=== PATIENT | male | born 1970 | race Caucasian/White ===

== ENCOUNTER 2020-03-05 10:06 | Outpatient (REF) | payer OTHER, SELFPAY ==
[2020-03-05 11:44] LABS: Alanine Aminotransferase 36 U/L (0-40); Albumin Level 4.3 g/dL (3.5-5.0); Alkaline Phosphatase 64 U/L (39-117); Anion Gap 10 (12-20); Aspartate Amino Transferase 30 U/L (5-37); Bilirubin Total 0.7 mg/dL (0.0-1.0); Blood Urea Nitrogen 16 mg/dL (9-16); Calcium 8.3 mg/dL (8.4-10.2); Carbon Dioxide 28 mmol/L (22-29); Chloride 105 mmol/L (96-108); Estimated Glomerular Filt Rate > 60; Glucose Fasting 86 mg/dL (60-99); Potassium 3.9 mmol/l (3.3-5.1); Sodium 139 mmol/L (135-145); Total Protein 7.1 g/dL (6.5-8.0)
[2020-03-05 12:06] LABS: Prostate Specific Antigen Scr 1.13 ng/mL (<0.05-4.0); TSH reflex Free T4 1.06 mIU/mL (0.32-4.0)
[2020-03-05 12:13] LABS: Cholesterol 183 mg/dL; HDL Cholesterol 37 mg/dL; LDL Cholesterol Calculated 131 mg/dl; Triglycerides 75 mg/dL
--- NOTE | 2020-03-05 12:14 | XR_ITS ---
EXAMINATION: XR HIP, LEFT CLINICAL INFORMATION: Pain left hip. COMPARISON: None TECHNIQUE: Two views of the left hip. FINDINGS: There is severe loss of superior left hip joint space with mild periarticular spurring. There is mild deformity of left femoral head with subchondral cystic changes and mild sclerosis. No visible acute fracture, dislocation or subluxation seen. The right hip joint, SI joint and rest of the pelvis appears unremarkable. XR/XR hip LT w PEL1V IMPRESSION: Severe advanced degenerative arthritic changes left hip joint with periarticular spurring. No acute fracture or dislocation. AP pelvis and the right hip joint appears unremarkable.
== END 2020-03-05 10:07 | disposition home or self-care (01) ==
LOC: HO.LAB 10:06
PROVIDERS: PCP Physician Assistant; Visit Provider Physician Assistant
DX: M25.552 Pain in left hip (principal); G89.29 Other chronic pain; Z13.29 Encounter for screening for other suspected endocrine disorder; Z13.1 Encounter for screening for diabetes mellitus; Z12.5 Encounter for screening for malignant neoplasm of prostate; Z13.220 Encounter for screening for lipoid disorders
CPT/HCPCS: 73502; 80053; 80061; 84153; 84443

== ENCOUNTER 2020-04-08 19:28 | Outpatient (REF) | payer OTHER, SELFPAY ==
--- NOTE | 2020-04-08 19:36 | MR_ITS ---
EXAMINATION: MR HIP WITHOUT CONTRAST, LEFT CLINICAL INFORMATION: Other sprain of left hip, initial encounter. Patient reports hip pain for several years, physical therapy with no progress, and no recent injury. COMPARISON: XR left hip and pelvis 03/05/2020 TECHNIQUE: MRI of the left hip was obtained using routine sequences on a high-field magnet. FINDINGS: ACETABULAR LABRUM: The anterosuperior labrum is not visualized and appears to be completely replaced by a marginal osteophyte. The lateral labrum is degenerated with attenuation and irregularity. The posterior labrum is grossly intact. ARTICULAR CARTILAGE/BONE: There are prominent marginal osteophytes. There is severe narrowing of the superior weightbearing portion of the left hip joint with severe cartilage loss. There is mild patchy subchondral bone marrow edema. There are 2 small subchondral degenerative cysts in the superomedial femoral head. There is mild lateral subluxation of the left femoral head. MUSCLES/TENDONS: Intact. JOINT FLUID/BURSA: There is a small left hip joint effusion with mild debris or synovitis. INTRAPELVIC STRUCTURES: Unremarkable. MR/MR hip LT wo con IMPRESSION: 1. Severe osteoarthritis of the left hip joint. 2. Small left hip joint effusion with mild debris or synovitis.
== END 2020-04-08 19:29 | disposition home or self-care (01) ==
LOC: HO.MRI 19:28
PROVIDERS: Visit Provider Physician Assistant
DX: S73.192A Other sprain of left hip, initial encounter (principal)
CPT/HCPCS: 73721

== ENCOUNTER → 2021-06-03 12:09 | Outpatient (BNVA) | payer OTHER, SELFPAY | PROVIDERS: PCP Physician Assistant; Visit Provider Nurse Practitioner Family ==

== ENCOUNTER 2024-05-23 13:58 | Outpatient (AMB) | payer OTHER, SELFPAY ==
[2024-05-23 14:03] VITALS: BP 120/62; PULSE 76; TEMP 36.2; O2SAT 97; BMI 23.6
--- NOTE | 2024-05-23 14:03 | A.OFFPC_ITS ---
Vital Signs 05/23/24 14:03 Height 5 ft 11 in Weight 169 lb 4 oz BMI 23.6 BP 120/62 Blood Pressure Location Lt brachial Position Sitting Pulse 76 Pulse Source Pulse Oximeter Temp 97.1 F Temp Source Temporal Artery Scan Pulse Oximetry (%) 97 Intake Visit Reasons: degenerative change on foot Intake Note: Patient is here today for a physical. 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 Accompanied by: Self / Same As Patient Allergies penicillin G Allergy (Unknown, Verified 05/23/24 14:16) unknown procaine [From Novocain] Allergy (Unknown, Verified 05/23/24 14:16) edema Medication List - Last Reconciled 05/23/24 by Nicholas Croft PA-C bisacodyl (Dulcolax (bisacodyl)) 10 mg (2 x 5 mg) PO ONCE 1 day cetirizine (Zyrtec) 10 mg PO DAILY PRN polyethylene glycol 3350 (Miralax) 238 grams PO ONCE Tobacco use date assessed: 05/23/24 Dental Screening Dental Screen Date: 05/23/24 Did you have a dental visit in the last 12 months?: Yes Did you have a dental problem in the last 6 months where you did not have access to dental care?: No Was dental information given to patient?: Patient has dentist HPI degenerative change on foot HPI Details Patient is a 53-year-old male here today for a routine annual physical. Patient has a past medical history significant for hip osteoarthritis and borderline high cholesterol. Concerns--> Colorectal cancer screening: Vaccines: Up-to-date with COVID vaccine, tetanus vaccine, considering flu vaccine PFSH Medical History Osteoarthritis of left shoulder Osteoarthritis of both hips Surgical History Hx of detached retina repair History of total hip replacement History of surgery Family History Father Diabetes Renal cancer Mother No problems noted. Sister HIV (human immunodeficiency virus infection) Maternal Grandmother Alzheimers disease Mental health disorder Social History (Updated 05/23/24 @ 14:15 by Nicholas Croft PA-C) Housing: Condominium Alcohol intake: current Alcohol intake frequency: 0-2 drinks per day Patient Tobacco Use Status: Never used Tobacco e-Cigarette/Vaping Use: Never Used service: No Current occupational status: employed Current occupation: [employer] Cognitive needs: No Hearing needs: No Vision needs: No Questionnaire Thrive Questionnaire Date Thrive assessed: 03/10/22 AUDIT C Alcohol Use Questionnaire (AUDIT-C) 2. How many drinks containing alcohol do you have on a typical day when you are drinking?: 1 or 2 3. How often do you have six or more drinks on one occasion?: Never Total Score: 0 DEREK-7 AMB Questionnaire DEREK-7 Date DEREK - 7 assessed: 03/10/22 Source: Developed by Drs. Isaiah James, Carly Lui, Rafita Linton and colleagues, with an educational cindy from [employer]. Physical exam (Primary Care) Vital Signs: Last Vital Signs Temp 97.1 F 05/23/24 14:03 Pulse 76 05/23/24 14:03 BP 120/62 05/23/24 14:03 Pulse Ox 97 05/23/24 14:03 BMI result Body Mass Index 23.6 Tobacco/Smoking Status: Tobacco use Status Tobacco use date assessed 05/23/24 05/23/24 14:08 Patient Tobacco Use Status Never used Tobacco 05/23/24 14:15 e-Cigarette/Vaping Use Never Used 05/23/24 14:15 Thrive Assessment: Date of Thrive Assessment Date Thrive assessed 03/10/22 05/23/24 14:04 Office Procedures Flu Questionnaire Does the patient have a severe egg allergy?: No Does the patient have severe life threatening allergies?: No Does the patient have a fever or illness today?: No Has the patient ever had Guillain-[place] Syndrome?: No Has the patient ever had any past reaction to a flu shot?: No Immunizations Fluarix Triv 0315-3364 (PF) 45 mcg (15 mcg x 3)/0.5 mL IM syringe Performing Provider: Nicholas Croft PA-C [facility] Administered by: KIRSTIE Wu on 05/23/24 14:50 Dose Route Admin Location Dispensed Lot Number Expiration Date [facility] 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 Eligible 05/23/24 Private Coding Diagnoses Borderline high cholesterol E78.9 Left foot pain M79.672 Right foot pain M79.671 Skin lesion of back L98.9 Assessment & Plan Assessment & Plan (1) Borderline high cholesterol: Code(s): E78.9 - Disorder of lipoprotein metabolism, unspecified Category: Medical (2) Left foot pain: Code(s): M79.672 - Pain in left foot Category: Medical (3) Right foot pain: Code(s): M79.671 - Pain in right foot Category: Medical (4) Skin lesion of back: Code(s): L98.9 - Disorder of the skin and subcutaneous tissue, unspecified Category: Medical Orders: Orders Comprehensive [place]. Panel Fast Today Z13.1 - Encounter for screening for diabetes mellitus Complete Blood Count no Diff Today Z13.1 - Encounter for screening for diabetes mellitus Prostate Specific Antigen Scr Today Z12.5 - Encounter for screening for malignant neoplasm of prostate, Z13.1 - Encounter for screening for diabetes mellitus Lipid Panel Today E78.9 - Disorder of lipoprotein metabolism, unspecified XR foot RT 2V Today M79.671 - Pain in right foot XR foot LT 2V Today M79.672 - Pain in left foot
--- OUTSIDE RECORDS SUMMARY | 2024-05-23 18:27 | XMS_ITS | Data Portability ---
Author Organization [facility], OFFICE Address [address], [facility] [address] [place] [address] Assessment Encounter Date Assessment Date Assessment LastModified by Organization Details LastModified Time 07/01/2020 07/01/2020 We discussed the options related to his treatment. ??He has advanced OA with complete loss of the cartilage space interval, cam impingement and osteophyte formation. His best choices are continued nonoprx vs left total hip arthroplasty. We discussed the issues related to total hip arthroplasty in a lot of detail today including the preoperative process, the operative techniques, less invasive techniques, computer-assisted techniques, the types of implants, the types of bearings, and the perioperative risks. In addition, we discussed the typical hospitalization course following surgery and reasonable expectations for recovery, outcome, activity level, and long-term followup. He is interested in proceeding and we will begin to make arrangements.?? This visit was conducted as a real-time telehealth interactive video visit during this the national emergency and ongoing COVID-19 pandemic. He was identified and consented to this telehealth visit. He was at his home and I was at my home office. I spent a total of 35 minutes during this encounter. Greater than 50% of the time was devoted to counseling and coordinating care. This included reviewing records and pertinent studies, discussing diagnostic evaluation and workup, planning therapeutic interventions, and formulating the future disposition of care. sbm Not available 07/01/2020 15:15:45 11/02/2020 11/02/2020 Rob is progressing well following elective LTHR. He was able to return to work without support at 5 days. He's going to continue to resume all reasonable activities as tolerated. This visit was conducted as a real-time telehealth interactive video visit during this the national emergency and ongoing COVID-19 pandemic. He was identified and consented to this telehealth visit. I spent a total of 15 minutes during this encounter. Greater than 50% of the time was devoted to counseling and coordinating care. This included reviewing records and pertinent studies, discussing diagnostic evaluation and workup, planning therapeutic interventions, and formulating the future disposition of care. sbm Not available 11/02/2020 13:16:24 Plan of Treatment Reminders Order Date Submit Date Provider Last Modified By Organization Details Last Modified Time Details Appointments None record ed. Lab None record ed. Referral None record ed. Procedures None record ed. Surgeries None record ed. Imaging None record ed. Medication Orders None record ed. Patient TargetsNo targets recorded. Patient InstructionsNo instructions recorded. Reason for Referral None Reported. Procedures Surgical History Date Name Laterality Status Provider Name and Address Organization Details Recorded Time total replacement of left hip joint completed Keerthi Goncalves [place] - [facility] 10/29/2020 11:32:05 repair of retina for retinal detachment completed Patrick Barclay MD [address] [facility] [place],[facility] [address], [place], [address], [place] - [facility]Ass[facility]d and [facility] 07/01/2020 15:11:13 repair of umbilical hernia completed Patrick Barclay MD [address], [place], [address], [place] - Comp-Assistd and [facility] 07/01/2020 15:11:30 Imaging Results None recorded. Procedure Notes None recorded. Medical Equipment None Reported. Allergies Allergen ID Allergen Name Allergen Category Reaction Reaction Severity Criticality Documentation Date Start Date Code Code System Note Provider Name and Address Organization Details Recorded Time 03034 Medicinal product containin g penicilli n and acting as antibacte rial agent (product) medicatio n Not available Not available Not available 07/01/2020 41281 05 SNOMED [facility] 11:21:41 98641 procaine hydrochlo ride medicatio n Not available Not available Not available 07/01/2020 31483 8 RxNorm Keerthi Goncalves null, [place] - [facility]Ass[facility]d [facility] 11:21:55 Medications Name Sig Start Date Stop Date Status Note LastModified by Organization Details LastModified Time celecoxib 200 mg capsule PRE OP: TAKE 2 TABLETS THE NIGHT BEFORE SURGERY AND TAKE 1 TABLET THE MORNING OF SURGERY. POST OP: TAKE 1 TABLET DAILY active Not Available Not Available No t Available erythromycin 500 mg tablet TAKE 2 TABLETS BY MOUTH 1 HOUR PRIOR TO DENTAL WORK active Not Available Not Available No t Available ofloxacin 0.3 % eye drops INSTILL 1 DROP INTO RIGHT EYE 4 TIMES A DAY AFTER SURGERY active Not Available Not Available No t Available ondansetron HCl 4 mg tablet Take 2 tablet(s) 2 TIMES A DAY by oral route. PRN for Nausea active Not Available Not Available No t Available prednisolone acetate 1 % eye drops,suspensi on INSTILL 1 DROP INTO RIGHT EYE 4 TIMES A DAY AFTER SURGERY active Not Available Not Available No t Available atropine 1 % eye drops INSTILL 1 DROP INTO RIGHT EYE TWICE A DAY AFTER SURGERY active Not Available Not Available No t Available oxycodone 5 mg tablet Take 1-2 tablet(s) EVERY 4-6 HOURS by oral route. active Not Available Not Available No t Available Eliquis 2.5 mg tablet TAKE 1 TABLET(S) 2 TIMES A DAY BY ORAL ROUTE FOR 30 DAYS AFTER SURGERY active Not Available Not Available No t Available Vitals Date Recorded Body height Body mass index (BMI) Body weight Provider Name and Address Organization Details Last Updated DateTime 07/01/2020 180.34 cm 23.6 kg/m2 29062.11 g Keerthi Goncalves [place] - Comp[facility]Ass[facility]d [facility] 07/01/2020 11:21:22 Social History Question Answer Notes LastModified by Organizat ion Details LastModified Time Tobacco Smoking Status Never Smoker Keerthi holguin, [place] - [facility] 07/01/2020 11:22:35 What Was The Date Of Your Most Recent Tobacco Screening? 07/01/2020 [email or web address] Information not available 07/01/2020 Do You Or Have You Ever Used Any Other Forms Of Tobacco Or Nicotine? No [email or web address] Information not available 07/01/2020 Sex: Unknown Functional Status None recorded. Mental Status None recorded. Family History Relationship Description Onset Age of this Age Resolved Age Notes LastModified by Organization Details LastModified Time Father Diabetes mellitus sbm Not available 2020 15:12:00 Father Coronary arterioscler osis sbm Not available 2020 15:12:18 Father Arthritis thr sbm Not available 07/01/2020 15:12:37 Mother Diabetes mellitus sbm Not available 2020 15:12:47 Medical History No medical history recorded. Past Encounters Encounter ID Performer Location Encounter Start Date Encounter Closed Date Diagnosis/Indication Diagnosis SNOMED-CT Code Diagnosis ICD10 Code Diagnosis Note [id number] Patrick Barclay MD [facility] [address] [place] [address] 07/01/2020 11:20:20 07/01/2020 16:23:20 [id number] [facility] [address] [place] [address] 11/02/2020 07:25:28 11/02/2020 13:55:57 Health Concerns Section Related Observation LastModified by Organization Detai ls LastModified Time None Recorded Concern Status LastModified by Organization Details LastModified Time None Recorded Advance Directives Directive None Recorded Payers Encounter Date Sequence Insurance Name Policy Number Policy Dominguez Covered Member ID Dominguez Member ID Guarantor Name 07/01/2020 1 [facility] [id number] Carlos Ortiz [id number] Carlos Ortiz 11/02/2020 1 [facility] Carlos Ortiz [id number] Carlos Ortiz Notes Date Note Type Note Provider Name and Address Organization Details Recorded Time 07/01/2020 text/html Hip(s) AthenaReported bypatient.Location:l eft; groin; buttocks Severity:moderate Alleviating Factors:rest; stretching Aggravating Factors:weightbearin g; exercise Associated Symptoms:no weakness; no numbness; no tingling; no swelling; no redness; no warmth; no ecchymosis; no catching/locking; no popping/clicking; no buckling; no grinding; no instability; no radiation down leg; no drainage; no fever; no chills; no weight loss; no change in bowel/bladder habits Prior Imaging:x ray; MRI Previous PT:extremely active as a baseline. worsens with activity. Patrick Barclay MD [address], [place], [address], [place] - [facility] 07/01/2020 15:15:50 11/02/2020 text/html Hip(s) AthenaReported bypatient.Location:l eft Severity:no pain Aggravating Factors:cannot identify Associated Symptoms:no weakness; no numbness; no tingling; no swelling; no redness; no warmth; no ecchymosis; no catching/locking; no popping/clicking; no buckling; no grinding; no instability; no radiation down leg; no drainage; no fever; no chills; no weight loss; no change in bowel/bladder habits Prior Imaging:x ray; CT scan Previous PT:helped significantly Patrick Barclay MD [address], [place], [address], [place] - Comp-Assistd and R[facility] 11/02/2020 13:16:30
--- OUTSIDE RECORDS SUMMARY | 2024-05-23 18:27 | XMS_ITS | Data Portability ---
Author Organization [facility] Office Address [address], [address] [place] [address] Care Team Providers Care Structural Shop Helper Name Role Phone JOHN ELLIOTT Primary Care Provider Assessment Encounter Date Assessment Date Assessment LastModified by Organization Details LastModified Time 12/08/2020 12/08/2020 Diagnostic Imaging: Grashey, axillary, and humerus views of bilateral shoulders (3 views x bilateral shoulders (2 shoulders) = 6 TOTAL views of the shoulder) demonstrates moderate/severe bilateral glenohumeral DJD, with joint space narrowing, and large inferior osteophyte, LEFT worse than RIGHT. It appears to be a B2 glenoid bilaterally. Evidence of calcific tendinitis in the LEFT supraspinatus. Assessment/Plan: 50-year-old male presents with moderate/severe bilateral glenohumeral DJD, with LEFT more symptomatic than RIGHT at this time. We had a long discussion regarding pertinent anatomy, imaging results, natural progression of the condition, and both non-surgical and surgical options. At this point, Carlos has significant pain, decreased range of motion, function limitations, notes his affecting his quality of life. We discussed anatomic shoulder replacement in detail, as well as possibly reverse shoulder replacement if he would have significant amounts of glenoid cyst, or rotator cuff issues. Ultimately, given his age, I hope that would be able to perform an anatomic replacement in him. We will get an MRI of his LEFT shoulder for further evaluation, and have it available for his visit with Dr. Buck. I will send a message on the portal once we get his results just to discuss the quality of his rotator cuff. We discussed risks, benefits, and perioperative outcomes and expectations of shoulder replacement. We discussed holding off as long as possible for his shoulder replacement, but I also realized that if we wait too long, we may lose the ability to perform an anatomic, and he may end up with a reverse shoulder replacement a bit earlier than expected. We also discussed longevity of implants, also lysis, stress shielding, [employer]HM[employer] polyethylene with vitamin E for both anatomic and reverse, as well as potential revisions down the road. We will set him up with a tentative surgical date for a LEFT total shoulder arthroplasty, as well as a presurgical appointment with Dr. uBck. He was given a copy of the presurgical booklet, and is viewed the presurgical video. All questions were answered, and he is comfortable with this plan. A total of 63 minutes was spent on the day of the visit, which included the patient viewing an educational video discussing risks and benefits of shoulder replacement, time spent preparing to see the patient, obtaining a pertinent H&P, review and discussion of imaging with the patient, discussion of patient anatomy, discussion of both non-surgical and surgical treatment options, answering patient questions, and documentation of the visit in EHR. This visit is a odle-ss-vulc visit during the COVID-19 pandemic. Based on my clinical judgment, I felt that this visit could not be provided safely and appropriately via TeleHealth. Based on available information prior to presentation, the patient had a high risk of significant worsening and potential functional impairment affecting ADLs if the visit was not completed today. The patient was seen in the office after following PPE use, Workforce Safety, Patient Safety and Infection Control protocols for all services provided today in accordance with [facility] and CDC Guidelines. There was additional practice expense incurred due to the Public Health Emergency. This additional expense includes but is not limited to: - Additional clinical staff and medical technical services specialist time for pre-screening - Time spent reviewing COVID social distancing guidelines, precautions, instructions, and signage - Patient symptom checking upon arrival - Application, removal, and purchasing of additional PPE - Additional cleaning of exam room, equipment, supplies, as well as cleaning supplies for that purpose. This note was dictated with Benjamin. Please excuse any errors in spelling/transcri ption, which may have changed the context of the sentence. [email or web address] Not available 05/31/2021 11:52:12 01/19/2021 01/19/2021 DATA: X-rays of the right show significant arthritis. On the left, he has arthritis with a large goat arango. The head sits extremely posterior in the joint with some wear of the posterior glenoid as well. Rotator cuff is intact. IMPRESSION: DJD left and right. Left is worse. Right I don? t have an MRI on yet, so it? s hard to talk about glenoid wear. PLAN: On the left, we have a very prolonged discussion as he has done extensive research into this problem, especially the options for someone so young. The question is could he have a CAM procedure, which Dr. Rian Martinez is the expert in versus a shoulder replacement. I went over everything really carefully. Given the fact he has already got some wear in the posterior glenoid and sits so far posterior in the joint, I don? t think he would be a good candidate for the CAM procedure, and in fact given the fact that this is his non-dominant arm, he is not going to overuse it, I would lean him more toward getting a shoulder replacement on that side sooner than later. He does have Dr. Rian Martinez? s information, and he could obviously send everything out to him as well. We did talk at length about different options regarding the right shoulder as well. My suggestion would be to get an MRI of the right shoulder, as that will give us some cross sectional imaging to determine the extent of glenoid wear, position of the head and then he would send that out to Dr. Rian Martinez to see if would be possible be a candidate for the CAM procedure on the right, but on the left I would lean more towards shoulder replacement, and he is seeing Dr. Geovanni Buck this Monday for that. If I can be of any further assistance, I would be glad to do so. This was a 25-minute encounter. Billing Code: [id number]. [email or web address] Not available 01/22/2021 00:47:29 01/22/2021 01/22/2021 Data:X-Ray AP/Grashey left shoulder- 1: Severe glenohumeral osteoarthritis. Complete loss of glenohumeral joint spacing. Very large inferior osteophyte. Impression/Plan: 50 year old male here for LEFT shoulder pain. Had a lengthy conversation today with the patient regarding his shoulder. Patient has watched the pre-visit video. Explained to patient in detail the anatomy of a shoulder. Reviewed X-Rays. Reviewed all possible treatment options which include: nothing until pain is unbearable, injections or surgery. Discussed the possible surgical options would be a total shoulder replacement or a reverse shoulder replacement. Discussed optimal treatment outcomes, with realistic healing, pain and range of motion levels post-surgically. Discussed possibility of 1% of cases failing early, within 10 years. Reviewed the seven surgical risks; infection, medical risk factors, dislocation/poppi ng out of socket, implant failure, nerve injury, stress fracture, and the possibility of still having pain. I am mostly concerned about his risk for and we discussed these risks in more detail. Reviewed operative and post op healing process. Discussed that patient is allowed to do small movements in front of body and driving usually is allowed within 2-6 weeks, once they are off pain medication and has practiced with family/friends. Patient received a pre-op binder. Will order a CT to evaluate glenoid bone stock pre-surgically. While Rob has advanced arthritic changes in his left shoulder given his radiographs, he is extremely young. While he has some glenoid bone stock remaining at this time, explained that erosion will continue to the point where future surgery may be complicated. However, there are benefits to holding off on surgery for the time being. He is extremely young and, should he sustain a intra- or postoperative complication, he will be worse off than he is now. Additionally, technology and prosthetic design is improving at a drastic rate - it is possible future designs will better address glenoid erosion in younger patients. Indications for reverse replacements continue to expand. Given Rob's glenoid erosion pattern, a reverse replacement may serve him better than an augmented, anatomic replacement in the long run. However, a reverse replacement is still aggressive at this time given his age. There is clear benefit to Rob holding off on surgery for the time being until he is a better candidate for a reverse, as revising an anatomic prosthesis to a reverse prosthesis is more prone to complications and limited clinical outcome. He should f/u annualy to monitor the progression of his glenoid erosion. Rob is in agreement with this plan and will continue to use his shoulder for whatever actions he tolerates. We will cancel his upcoming surgical date. Given the patient's pain, dysfunction, and advanced degenerative changes, advised against enrollment in a formal physical therapy program, as this will likely exacerbate their shoulder pain. ? I spent a total of 47 minutes on the day of the visit, which includes time spent preparing to see the patient by reviewing records/test results including patient radiographs, obtaining patient history, performing a medically necessary examination, counseling/educat ing the patient on surgical risks, rehabilitation timelines, and continued shoulder care, communicating with other health professionals including Allan Amin's clinical notes, coordinating patient care, and documenting information in the EHR? The patient completed the COVID-19 screening handout and was deemed healthy to move forward with this appointment. This visit is a pidc-ze-fsjp visit during the COVID-19 pandemic. Based on my clinical judgment, I felt that this visit could not be provided safely and appropriately via TeleHealth. Based on available information prior to presentation, the patient had a high risk of significant worsening and potential functional impairment affecting ADLs if the visit was not completed today. The patient was seen in the office after following PPE use, Workforce Safety, Patient Safety and Infection Control protocols for all services provided today in accordance with [facility] and CDC Guidelines. There was additional practice expense incurred due to the Public Health Emergency. This additional expense includes but is not limited to: * Additional clinical staff and medical technical services specialist time for pre-screening * Time spent reviewing COVID social distancing guidelines, precautions, instructions, and signage * Patient symptom checking upon arrival * Application, removal, and purchasing of additional PPE * Additional cleaning of exam room, equipment, supplies, as well as cleaning supplies for that purpose. Not available 01/22/2021 12:09:03 2023 2023 ASSESSMENT: - Advanced arthritis in the shoulder - Large bone spur in the shoulder - Decreased range of motion in the shoulder - Pain in the shoulder PLAN: The patient is considering a reverse arthroplasty due to his advanced arthritis. The patient is advised to continue moving and working out as it is beneficial for his condition. The patient is also advised to focus on pulling exercises rather than pushing exercises to keep the load off his shoulder. The patient is advised to return for a follow-up in a year, or sooner if his condition worsens. The patient is also advised to get a CAT scan and an MRI to assess the erosion in his shoulder and the condition of his rotator cuff. [email or web address] Not available 2023 11:48:43 Plan of Treatment Reminders Order Date Submit Date Provider Last Modified By Organization Details Last Modified Time Details Appointments None recorded. Lab None recorded. Referral None recorded. Procedures None recorded. Surgeries None recorded. Imaging MRI, shoulder, w/o contrast - PLEASE INCLUDE T2 SAGITAL and give patient a disk to hand carry to office Right Shoulder Impingemen t, r/o Rotator Cuff Tear!! determine the extent of glenoid wear, position of the head Can you get this scheduled PRABHAKAR.. Patient will be in your area on this Monday. 2020 021 [facility], [address] [place] [address], [facility] [address], [place], [address], 08:54:28 Medication Orders None recorded. Patient TargetsNo targets recorded. Patient InstructionsNo instructions recorded. Reason for Referral None Reported. Results Created Date Observation Date Name Description Value Unit Range Abnormal Flag Note LastModifiedBy Organization Detail LastModifiedTime 12/09/1912/08/2020 jak SAPP http:/ [email or web address] lweb/I ntegra tionPr ocesso r.aspx ?CMD=O PENSTU DY&ACC ESSION =[id number] Shoulder [address], [address], 12/08/2020 09:26:54 12/09/19 21 12/08/2020 ankit SAPP http:/ /[email or web address]/opa lweb/I ntegra tionPr ocesso r.aspx ?CMD=O PENSTU DY&ACC ESSION =[id number] Shoulder [address], [address], 12/08/2020 09:26:54 01/09/20 21 01/07/2021 jak FISHER, w/o contr ast [facility] Access ion Number : [id number] Jeanna pineda Name: Rob Huitrona l Record Number : [id number] Date of : 1970 Date of Exam: 2020 Referr ing Physic davidson: Allan Amin [facility] [address], [address] [place] [address] Exam: MR Should er (C-) CPT 48495 - Left Room Descri ption: [facility] 3.0T Clinic al Histor y: Primar y osteoa rthrit is of the left should er. The patien t report s modera te to severe left should er pain occurr ing daily for 4 months with limite d range of motion . Techni que: MRI of the left should er was perfor med withou t intrav enous contra st. Compar matthias: None. Findin gs: Rotato r cuff: There is globul ar foci of T1 and T2 hypoin tense signal in the supras pinatu s and infras pinatu s footpr int, compat ible with calcif ic tendin opathy . There are small foci of T2 hyperi ntense signal adjace nt to both of these foci, which may reflec t adjace nt edema versus small intras ubstan ce partia l tears. There is mild tendin opathy of subsca pulari s. The teres minor tendon is intact . Rotato r cuff muscle bulk appear s mainta ined. Glenoi d labrum and biceps tendon : There is diffus e degene rative tearin g of the labrum . The biceps tendon is in the groove and there is mild thicke ana cristina and increa sed signal of the intra- articu lar portio n. AC joint: There is mild acromi oclavi cular degene rative change with mild bony prolif eratio n and mild marrow edema. Articu lar cartil age and bone: There is severe glenoh umeral degene rative change with full-t hickne ss chondr al loss throug hout the glenoh umeral joint and a large osteop hyte inferi yonny of the adriano l head neck juncti on. Mild marrow edema is seen throug hout most of the adriano l head with mild marrow edema anteri yonny in the glenoi d. There is bony remode ling of the glenoi d with slight certified nurse operating room ior inclin ation inferi yonny. There is bony prolif eratio n certified nurse operating room iorly of the glenoi d. A loose body in the subsca pulari s recess measur es up to 1.2 cm. There is hetero geneou s signal in the joint fluid in the glenoh umeral joint, which may reflec t additi onal small loose bodies or synovi tis. Impres darlene: 1. Severe glenoh umeral degene rative change with loose body in the subsca pulari s recess as well as additi onal loose bodies versus synovi tis. 2. Calcif ic tendin opathy of supras pinatu s and infras pinatu s with small foci of T2 hyperi ntense signal adjace nt to these foci, which may reflec t adjace nt edema versus small intras ubstan ce partia l tears. 3. Mild tendin opathy of the intra- articu lar biceps . 4. Mild acromi oclavi cular degene rative change . Electr onical ly Signed By: Nay Ferguson ra, MD [facility] ([facility] [address] [place], [address], 01/10/2021 10:37:02 03/03/20 21 03/02/2021 MRI, jak scottie, w/o contr ast No observ ation record ed. comari [facility] [address] [address], [place], [address], 06/01/2021 15:30:01 08/25/19 24 XR, humer us, 2 or more view No observ ation record ed. [address], [address] 2023 15:45:55 08/25/19 24 img:x r shoul ders bilat min 2V No observ ation record ed. [address], [address] 2023 15:45:55 08/25/19 24 img:x r humer us left 2 views minim um No observ ation record ed. [address], [address] 2023 15:45:56 08/25/19 24 2023 xr humer us right 2 views minim um Fin al Report EXAM#: [id number] PROCED URE: DXR 0094 XR HUMERU S RIGHT 2 VIEWS MINIMU M 2023 12:25P M CLINIC AL INDICA TION: PAIN IN L/R SHOULD ER Clinic al indica tions: Pain in left should er. 2 views of each should er and single views of each humeru s are obtain ed. No compar matthias should er radiog raphs. At the left should er, there is severe glenoh umeral osteoa rthrit is with bone-o n-bone and a very large osteop hyte arisin g from the inferi or adriano l head. On the right, there is severe glenoh umeral osteoa rthrit is with bone-o n-bone as well as large adriano l osteop hyte inferi yonny. Examin ation of the left humeru s shows no additi onal abnorm ality. Examin ation of the right humeru s shows no additi onal abnorm ality. NUMBER OF IMAGES : 1 Report ed by : WOODY FLOWERS M.D. On: 2023 12:48P Signed by: WOODY FLOWERS M.D. On: 2023 12:48P [email or web address] [facility] [address] [place], [address], 2023 15:45:54 08/25/19 24 2023 xr humer us left 2 views minim um Fin al Report EXAM#: [id number] PROCED URE: DXR 0093 XR HUMERU S LEFT 2 VIEWS MINIMU M 2023 12:25P M CLINIC AL INDICA TION: PAIN IN LEFT SHOULD ER Clinic al indica tions: Pain in left should er. 2 views of each should er and single views of each humeru s are obtain ed. No compar matthias should er radiog raphs. At the left should er, there is severe glenoh umeral osteoa rthrit is with bone-o n-bone and a very large osteop hyte arisin g from the inferi or adriano l head. On the right, there is severe glenoh umeral osteoa rthrit is with bone-o n-bone as well as large adriano l osteop hyte inferi yonny. Examin ation of the left humeru s shows no additi onal abnorm ality. Examin ation of the right humeru s shows no additi onal abnorm ality. NUMBER OF IMAGES : 1 Report ed by : WOODY FLOWERS M.D. On: 2023 12:48P Signed by: WOODY FLOWERS M.D. On: 2023 12:48P [email or web address] [facility] [address] [place], [address], 2023 15:45:54 08/25/19 24 2023 xr shoul ders bilat min 2V Fin al Report EXAM#: [id number] PROCED URE: DXR 0147 XR SHOULD ERS BILAT MIN 2V 2023 12:25P M CLINIC AL INDICA TION: PAIN IN L/R SHOULD ER Clinic al indica tions: Pain in left should er. 2 views of each should er and single views of each humeru s are obtain ed. No compar matthias should er radiog raphs. At the left should er, there is severe glenoh umeral osteoa rthrit is with bone-o n-bone and a very large osteop hyte arisin g from the inferi or adriano l head. On the right, there is severe glenoh umeral osteoa rthrit is with bone-o n-bone as well as large adriano l osteop hyte inferi yonny. Examin ation of the left humeru s shows no additi onal abnorm ality. Examin ation of the right humeru s shows no additi onal abnorm ality. NUMBER OF IMAGES : 4 Report ed by : WOODY FLOWERS M.D. On: 2023 12:48P Signed by: WOODY FLOWERS M.D. On: 2023 12:48P [email or web address] [facility] [address] [place], [address], 2023 15:45:55 Result Notes None recorded. Problems Name Problem SNOMED Code Status Onset Date Resolution Date Notes Provider Name and Address Organization Details Recorded Time Localized, primary osteoarthritis of the shoulder region 845337417 Active 2020 SUSANA CAMPOS [address] [place] [address], [id number], [facility] 10:18:28 Problem Notes None recorded. Procedures Surgical History Date Name Laterality Status Provider Name and Address Organization Details Recorded Time 10/07/19 21 Orthopaedic Surgery completed Mirtha Garcia [facility] 12/08/2020 09:06:59 09/06/19 20 Orthopaedic Surgery completed Mirtha Garcia [facility] 12/08/2020 09:07:15 Other completed [facility] 01/19/2021 15:08:36 Imaging Results Imaging Date Name Status LastModified by Og saldana Details LastModified Time 12/08/2020 XR, shoulder completed [address] [facility] [address], [address], 12/08/2020 09:26:54 12/08/2020 XR, humerus completed [address] [facility] [address], [address], 12/08/2020 09:26:54 01/07/2021 MRI, shoulder, w/o contrast completed [facility] [address] [place], [address], 01/10/2021 10:37:02 03/02/2021 MRI, shoulder, w/o contrast completed [facility] [address], [address], 06/01/2021 15:30:01 2023 XR, humerus, 2 or more view completed [facility] [address], [address] 2023 15:45:55 2023 img:xr shoulders bilat min 2V completed [facility] [address] [place], [address] 2023 15:45:55 2023 img:xr humerus left 2 views minimum completed [address], [place], [address] 2023 15:45:56 2023 xr humerus right 2 views minimum completed [address] [facility] [address] [place], [address], 2023 15:45:54 2023 xr humerus left 2 views minimum completed [address] [facility] [address] [place], [address], 2023 15:45:54 2023 xr shoulders bilat min 2V completed [address] [facility] [address] [place], [address], 2023 15:45:55 Procedure Notes None recorded. Medical Equipment None Reported. Allergies Allergen ID Allergen Name Allergen Category Reaction Reaction Severity Criticality Documentation Date Start Date Code Code System Note Provider Name and Address Organization Details Recorded Time 504207 Medicinal product containin g penicilli n and acting as antibacte rial agent (product) medicatio n Not available Not available Not available 12/08/2020 94465 05 SNOMED Mirtha [facility] 09:04:40 Medications Name Sig Start Date Stop Date Status Note LastModified by Organization Details LastModified Time celecoxib 200 mg capsule PLEASE SEE ATTACHED FOR DETAILED DIRECTION S 12/08 completed Not Available Not Available Not Available erythromyci n 500 mg tablet TAKE 2 TABLETS BY MOUTH 1 HOUR PRIOR TO DENTAL WORK 12/08 completed Not Available Not Available Not Available ofloxacin 0.3 % eye drops INSTILL 1 DROP INTO RIGHT EYE 4 TIMES A DAY AFTER SURGERY 12/08 completed Not Available Not Available Not Available ondansetron HCl 4 mg tablet TAKE 2 TABLET(S) 2 TIMES A DAY BY ORAL ROUTE. NEEDED FOR NAUSEA 12/08 completed Not Available Not Available Not Available prednisolon e acetate 1 % eye drops,suspe nsion INSTILL 1 DROP INTO RIGHT EYE 4 TIMES A DAY AFTER SURGERY 12/08 completed Not Available Not Available Not Available atropine 1 % eye drops INSTILL 1 DROP INTO RIGHT EYE TWICE A DAY AFTER SURGERY 12/08 completed Not Available Not Available Not Available oxycodone 5 mg tablet TAKE 1 2 TABLET(S) EVERY 4 6 HOURS BY ORAL ROUTE. 12/08 completed Not Available Not Available Not Available ibuprofen 800 mg nightly 08/23 completed Not Available Not Available Not Available Tylenol 01/22 completed Not Available Not Available Not Available Eliquis 2.5 mg tablet TAKE 1 TABLET(S) 2 TIMES A DAY BY ORAL ROUTE FOR 30 DAYS AFTER SURGERY 12/08 completed Not Available Not Available Not Available Vitals Date Recorded Body height Provider Name an d Address Organization Details Last Updated DateTime 12/08/2020 180.34 cm Mirtha Garcia [facility] 12/08/2020 09:03:39 Date Recorded Body mass index (BMI) Body weight Provider Name and Address Organization Details Last Updated DateTime 12/08/2020 22.7 kg/m2 17299.56 g Mirtha Garcia [facility] 12/08/2020 09:03:40 Date Recorded Body height Provider Name an d Address Organization Details Last Updated DateTime 01/19/2021 180.34 cm Dorota Fuchs [facility] 01/19/2021 15:11:13 Date Recorded Body mass index (BMI) Body weight Provider Name and Address Organization Details Last Updated DateTime 01/19/2021 22.7 kg/m2 83763.56 g Dorota Fuchs [facility] 01/19/2021 15:11:17 Date Recorded Body height Provider Name an d Address Organization Details Last Updated DateTime 01/22/2021 180.34 cm Ernie Hernandez [facility] 01/22/2021 11:29:41 Date Recorded Body height Provider Name an d Address Organization Details Last Updated DateTime 2023 180.34 cm Mac Soto [facility] 2023 11:05:59 Date Recorded Body mass index (BMI) Body weight Provider Name and Address Organization Details Last Updated DateTime 2023 22.7 kg/m2 12407.56 g Mac Soto [facility] 2023 11:06:02 Social History Question Answer Notes LastModified by Organizat ion Details LastModified Time Tobacco Smoking Status Never Smoker Mac holguin [facility] 2023 11:06:13 What Is Your Level Of Alcohol Consumption? Occasional Information not available 2023 Do You Or Have You Ever Used E-cigarettes Or Vape? 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 Never Used Smokeless Tobacco Information not available 2023 Sex: Unknown Functional Status None recorded. Mental Status None recorded. Family History Relationship Description Onset Age of this Age Resolved Age Notes LastModified by Organization Details LastModified Time Father No current problems or disability [email or web address] Not available 07/2020 09:06:27 Mother No current problems or disability [email or web address] Not available 07/2020 09:06:27 Medical History Condition Response HIV or AIDS N High Blood Pressure N Irregular Heartbeat N MRSA N Any Other Significant Medical Issues N Weight Gain / Loss N Hearing Loss N Angina, Heart Failure or Attack N Night Sweats N Seizures / Epilepsy N Osteoarthritis / Rheumatoid arthritis / Other N Cancer N Stroke N Ulcer / Stomach Bleeding / Indigestion N Visual Loss or Glaucoma N Blood Clots / Phlebitis N Heart Problems N Depression or Anxiety N Emphysema / Chronic Bronchitis N Reaction to General/Local Anesthesia N Hepatitis / Jaundice N Kidney / Bladder Infections N Diabetes N Bleeding Disorder N Chemical Dependency / Alcoholism N Psoriasis / Skin Rash N Thyroid Disorder N Heart Disease N Asthma / Shortness of Breath / Sleep 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 Design Assistant ea (please specify) N Pulmonary Embolism N Immunizations Vaccine Type Date Status Note Provider Nam e and Address Organization Details Recorded Time SARS-COV-2 (COVID-19) vaccine, UNSPECIFIED 11/19/2020 completed Mirtha holguin [facility] 12/08/2020 09:06:05 Past Encounters Encounter ID Performer Location Encounter Start Date Encounter Closed Date Diagnosis/Indication Diagnosis SNOMED-CT Code Diagnosis ICD10 Code Diagnosis Note [id number] SUSANA CAMPOS [place] [facility] [address] [place] [phone] 12/08/2020 08:10:35 12/08/2020 13:13:25 Localized, primary osteoarthritis of the shoulder region 166929558 M19.012 [id number] TONI MAN MD [address] [address] 01/19/2021 10:36:33 01/22/2021 10:49:23 Osteoarthritis 218480637 M19.011 [id number] PADMINI BUCK MD [place] [facility] [address] [place] [phone] 01/22/2021 10:48:33 01/22/2021 12:11:01 Localized, primary osteoarthritis of the shoulder region 058689280 M19.989 [id number] PADMINI BUCK MD [address] [address] 2023 09:45:08 2023 11:47:16 Localized, primary osteoarthritis of the shoulder region 722495674 M19.012 Health Concerns Section Related Observation LastModified by Organization Detai ls LastModified Time None Recorded Concern Status LastModified by Organization Details LastModified Time None Recorded Advance Directives Directive None Recorded Payers Encounter Date Sequence Insurance Name Policy Number Policy Dominguez Covered Member ID Dominguez Member ID Guarantor Name 12/08/2020 1 [facility] Carlos Ortiz [id number] Carlos Josh Ortiz 01/19/2021 1 [facility] Carlos Josh Burling [id number] Carlos R Diana 01/22/2021 1 [facility] Carlos Moreno Burling [id number] Carlos Josh Ortiz 2023 1 [facility] I (O) [id number] Carlos Ortiz [id number] Carlos Ortiz Notes Date Note Type Note Provider Name and Address Organization Details Recorded Time 12/08/2020 text/html 50-year-old male presents chief complaint bilateral shoulder pain, LEFT worse than RIGHT. 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 He has been noticing decreasing range of motion over the past 3-4 years, which is significantly worsened over the past 2 months. He rates his pain is 6/10 in LEFT, 4/10 in the RIGHT, function 11% LEFT, 50% RIGHT. He notes that his main complaint is the pain at night, and it makes it difficult to sleep. She was includes oral Tylenol, and oral anti-inflammatories daily, but he continues to note difficulty sleeping at night. He has not had any cortisone injections in his LEFT shoulder. He has been doing guided home exercise program to minimal improvement in pain. He describes his HEP as: 5 days/wk 45 mins/day which focuses on strengthening, internal & external ROMs, scapular bench presses, deltoid abduction (he uses machines at gym and in his chiro office). he also does yoga during nightime for 45mins and uses an E-Stim machine a few times a week along with taking Ibuprofen daily. He reports he feels the exercising has made his shoulder worse and has not felt an improvement. SUSANA CAMPOS [address] [place], [phone], [facility] 05/31/2021 11:52:26 01/19/2021 text/html COVID-19 STATEME NT: This visit is a real-time interactive audio/visual TeleHealth visit conducted on 01/19/2021 due to the National Emergency and COVID-19 Pandemic restrictions on movement. Patient was identified by name and date of and consented to this TeleHealth visit.HX: Carlos is reached via TeleHealth for options ongoing with both shoulders. He has arthritis on both shoulders. He is seeing Dr. Geovanni Buck this week. The question for me really is whether there are any arthroscopic options. TONI MAN MD [address] [facility], [place], [phone], [facility] 01/22/2021 10:43:13 01/22/2021 text/html 50 year old male here for LEFT shoulder pain. He last saw Allan on 12/08/2020. He goes by Rob. 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 He attributes this to him changing his exercise routines / incorporation of deltoid strengthening and hangs. He has a history of OA and has a DARREN. Following his new routine, he notes his pain and dysfunction increased greatly. He is uncertain whether holding off on surgery for the time being will hurt his candidacy for future surgery. He has been compensating with 800mg Ibuprofen at night and ceasing his hang workouts. He feels he can live with his shoulder for the time being, but is worried that lack of intervention will compromise future treatment(s). {{He* She}} rates {{his* her}} pain at a {{ 6#}}. {{His* Her}} ASES score is {{ 37#}}. {{His* Her}} SANE is {{ 11#}}. PADMINI BUCK MD [address] [place] [address], [phone], [facility] 01/25/2021 14:38:52 2023 text/html Carlos Ortiz, a 52-year-old male, presents to the clinic for a post-operative follow-up. The patient reports that his shoulder could be better, noting that over the past seven to eight months, he has been engaged in a lot of physical labor, which has limited his time at the gym. As a result, he has not been able to focus on the stabilizers for his shoulder. He reports that his ranges of motion have decreased, and he struggles to get his hand underneath his armpit unless it is in the morning. He also reports that his muscles are too guarded and in the evenings, which further limits his range of motion. The patient also reports challenges with sleeping, especially on his right side. He does not take any painkillers and tries to work through the pain. He mentions that his shoulder has been catching once in a while, and he has to shake it out because it gets stuck in a position. The patient is interested in the advancements in technology for shoulder replacements and has previously discussed reverse arthroplasty. He is aware that he has advanced arthritis and a large bone spur. PADMINI BUCK MD [address] [place] [address], [phone], [facility] 08/29/2023 11:37:34
== END 2024-05-23 14:45 | disposition home or self-care (01) ==
PROVIDERS: PCP Physician Assistant; Visit Provider Physician Assistant
DX: Z23 Encounter for immunization (principal)

== ENCOUNTER → 2024-05-23 13:58 | Outpatient (BNVA) | payer OTHER, SELFPAY | PROVIDERS: PCP Physician Assistant; Visit Provider Physician Assistant | DX: Z00.00 Encounter for general adult medical examination without abnormal findings (principal); E78.9 Disorder of lipoprotein metabolism, unspecified; M79.671 Pain in right foot; M79.672 Pain in left foot; L98.9 Disorder of the skin and subcutaneous tissue, unspecified | CPT/HCPCS: 90471; 90656; 99396 ==

== ENCOUNTER 2024-07-02 12:38 | Outpatient (REF) | payer OTHER, SELFPAY ==
[2024-07-02 13:00] LABS: Hematocrit 48.5 % (42.0-52.0); Hemoglobin 16.4 g/dl (14.0-18.0); Mean Corpuscular HGB Conc 33.8 g/dl (31.0-36.0); Mean Corpuscular Hemoglobin 30.8 pg (27.0-33.0); Mean Platelet Volume 9.3 fL (9.4-12.4); Platelet Count 210 X10*3/uL (160-400); Red Blood Count 5.33 X10*6/uL (4.60-5.80); Red Cell Distribution Width 12.7 % (11.0-16.0); White Blood Count 7.6 X10*3/uL (4.8-10.8)
[2024-07-02 13:37] LABS: Alanine Aminotransferase 50 U/L (0-40); Albumin Level 4.3 g/dL (3.5-5.0); Alkaline Phosphatase 65 U/L (39-117); Anion Gap 10 (12-20); Aspartate Amino Transferase 36 U/L (5-37); Bilirubin Total 0.6 mg/dL (0.0-1.0); Blood Urea Nitrogen 21 mg/dL (9-16); Calcium 9.1 mg/dL (8.4-10.2); Carbon Dioxide 28 mmol/L (22-29); Chloride 110 mmol/L (96-108); Cholesterol 220 mg/dL (<200); Estimated Glomerular Filt Rate > 60; Glucose Fasting 91 mg/dL (60-99); HDL Cholesterol 37 mg/dL (>40); LDL Cholesterol Calculated 164 mg/dL (<100); Sodium 144 mmol/L (135-145); Triglycerides 98 mg/dL (<150)
[2024-07-02 13:52] LABS: Prostate Specific Antigen Scr 1.42 ng/mL (<0.05-4.0)
--- OUTSIDE RECORDS SUMMARY | 2024-07-02 15:21 | XMS_ITS | Data Portability ---
Author Organization [facility], OFFICE Address [address], [facility] [address] [place] [address] Assessment Encounter Date Assessment Date Assessment LastModified [...] retinal detachment completed Patrick Barclay MD [address] [facility] [address], [place], [phone], [place] [facility] 07/01/2020 15:11:13 repair of umbilical hernia completed Patrick Barclay MD [address], [place], [address], [place] [facility] 07/01/2020 15:11:30 Imaging Results None recorded. Procedure Notes None recorded. Medical Equipment None Reported. Allergies Allergen ID Allergen Name Allergen Category Reaction Reaction Severity Criticality Documentation Date Start Date Code Code System Note Provider Name and Address Organization Details Recorded Time 36382 Product containin g penicilli n (product) medicatio n Not available Not available Not available 07/01/2020 02221 8001 SNOMED [facility] 11:21:41 50225 procaine hydrochlo ride medicatio n Not available Not available Not available 07/01/2020 65058 8 RxNorm [facility] 11:21:55 Medications Name [...] Updated DateTime 07/01/2020 180.34 cm 23.6 kg/m2 44471.11 g Keerthi Goncalves [place] - [facility] 07/01/2020 11:21:22 Social History Question Answer Notes LastModified by Organizat ion Details LastModified Time Tobacco Smoking Status Never Smoker Keerthi Goncalves null, [place] [facility] 07/01/2020 11:22:35 What Was The Date Of Your Most Recent Tobacco Screening? 07/01/2020 [email or web address] Information not available 07/01/2020 Do You Or Have You Ever Used Any Other Forms Of Tobacco Or Nicotine? No [email or web address] Information not available 07/01/2020 Sex: Unknown Functional [...] SNOMED-CT Code Diagnosis ICD10 Code Diagnosis Note [id number] Patrick Barclay MD [facility] [address] [place] [address] 07/01/2020 11:20:20 07/01/2020 16:23:20 [id number] Patrick Barclay MD [facility] [address] [place] [address] 11/02/2020 07:25:28 11/02/2020 13:55:57 Health Concerns Section Related Observation LastModified by Organization Detai ls LastModified Time None Recorded Concern Status LastModified by Organization Details LastModified Time None Recorded Advance Directives Directive None Recorded Payers Encounter Date Sequence Insurance Name Policy Number Policy Dominguez Covered Member ID Dominguez Member ID Guarantor Name 07/01/2020 1 [facility] [id number] Carlos Ortiz [id number] Carlos Ortiz 11/02/2020 1 [facility] Carlos Ortiz [id number] Carlos Ortiz Notes Date Note Type Note [...] Patrick Barclay MD [address], [place], [address], [place] [facility] 07/01/2020 [...] Patrick Barclay MD [address], [place], [address], [place] [facility] 11/02/2020 13:16:30
--- OUTSIDE RECORDS SUMMARY | 2024-07-02 15:21 | XMS_ITS | Data Portability ---
Author Organization [facility], [facility] Office Address [address], [address] [place] [address] Care Team Providers Care Mannequin Coloring Artist Name Role Phone JOHN ELLIOTT Primary Care Provider [phone] Assessment Encounter Date Assessment Date Assessment LastModified [...] well as a presurgical appointment with Dr. Buck. He was given a copy of the [...] visit in EHR. This visit is a mkpx-vt-knbb visit during the COVID-19 pandemic. Based on [...] all services provided today in accordance with [facility] and CDC Guidelines. There was additional practice expense incurred due to the Public Health Emergency. This additional expense includes but is not limited to: - Additional clinical staff and medical civil geotechnical engineer time for pre-screening - Time spent reviewing [...] This was a 25-minute encounter. Billing Code: 91535. [email or web address] Not available 01/22/2021 00:47:29 01/22/2021 01/22/2021 [...] with this appointment. This visit is a fxip-gt-oupd visit during the COVID-19 pandemic. Based on [...] all services provided today in accordance with [facility] and CDC Guidelines. There was additional practice expense incurred due to the Public Health Emergency. This additional expense includes but is not limited to: * Additional clinical staff and medical civil geotechnical engineer time for pre-screening * Time spent reviewing [...] your area on this Monday. 2020 021 [facility] 2 [facility], [address] [place] [address], [facility] [address], [place], [address], 08:54:28 Medication Orders None recorded. Patient TargetsNo targets recorded. Patient InstructionsNo instructions recorded. Reason for Referral None Reported. Results Created Date Observation Date Name Description Value Unit Range Abnormal Flag Note LastModifiedBy Organization Detail LastModifiedTime 12/09/1912/08/2020 jak SAPP http:/ /[email or web address]. 44/opa lweb/I ntegra tionPr ocesso r.aspx ?CMD=O PENSTU DY&ACC ESSION =34709 [address], [address], 12/08/2020 09:26:54 12/09/19 21 12/08/2020 ankit SAPP http:/ /[email or web address] 4.176. 44/opa lweb/I ntegra tionPr ocesso r.aspx ?CMD=O PENSTU DY&ACC ESSION =[address], [address], 12/08/2020 09:26:54 01/09/20 21 01/07/2021 jak FISHER, w/o contr ast [facility] Access ion Number : [id number] Jeanna pineda Name: Rob Huitron Record Number : [id number] Date of : 1970 Date of Exam: 2020 Referr ing Physic davidson: Allan Amin [facility] [address], [address] [place] [address] Exam: MR Should er (C-) CPT 52105 - Left Room Descri ption: [facility] 3.0T Clinic al Histor y: Primar y [...] ling of the [place] with slight sheriff officer ior inclin ation inferi yonny. There is bony prolif eratio n sheriff officer iorly of the [place]. A loose [...] ly Signed By: Nay Ferguson ra, MD [facility] ([facility]) [address] [place], [address], 01/10/2021 10:37:02 03/03/20 21 03/02/2021 MRI, jak scottie, w/o contr ast No observ ation record ed. comari [facility] [address] [address], [place], [address], 06/01/2021 15:30:01 08/25/19 24 XR, humer us, 2 or more view No observ ation record ed. [address], [address] 2023 15:45:55 08/25/19 24 img:x r shoul ders bilat min 2V No observ ation record ed. [address], [address] 2023 15:45:55 08/25/19 24 img:x r humer us left 2 views minim um No observ ation record ed. [address], [address] 2023 15:45:56 08/25/19 24 2023 xr humer us right 2 views minim um Fin al Report EXAM#: [id number] PROCED URE: DXR 0094 XR HUMERU [...] WOODY FLOWERS M.D. On: 2023 12:48P [email or web address] [facility] [address] [place], [address], 2023 15:45:54 08/25/19 24 2023 xr humer us left 2 views minim um Fin al Report EXAM#: [id number] PROCED URE: DXR 0093 XR HUMERU [...] WOODY FLOWERS M.D. On: 2023 12:48P [email or web address] [facility] [address] [place], [address], 2023 15:45:54 08/25/19 24 2023 xr shoul ders bilat min 2V Fin al Report EXAM#: [id number] PROCED URE: DXR 0147 XR SHOULD [...] WOODY FLOWERS M.D. On: 2023 12:48P [email or web address] [facility] [address] [place], [address], 2023 15:45:55 Result Notes None recorded. Problems Name Problem SNOMED Code Status Onset Date Resolution Date Notes Provider Name and Address Organization Details Recorded Time Localized, primary osteoarthritis of the shoulder region 811703703 Active 2020 SUSANA CAMPOS [address] [place] [address], [id number] 10:18:28 Problem Notes None recorded. Procedures Surgical History Date Name Laterality Status Provider Name and Address Organization Details Recorded Time 10/07/19 21 Orthopaedic Surgery completed Mirtha Garcia [facility] 12/08/2020 09:06:59 09/06/19 20 Orthopaedic Surgery completed Mirtha Garcia [facility] 12/08/2020 09:07:15 Other completed [place] [facility] 01/19/2021 15:08:36 Imaging Results Imaging Date Name Status LastModified by Organiz ation Details LastModified Time 12/08/2020 XR, shoulder completed [address] [facility] [address], [address], 12/08/2020 09:26:54 12/08/2020 XR, humerus completed [address] [facility] [address], [address], 12/08/2020 09:26:54 01/07/2021 MRI, shoulder, w/o contrast completed [facility] ([facility]) [address] [place], [address], 01/10/2021 10:37:02 03/02/2021 MRI, shoulder, w/o contrast completed [facility] [address], [address], 06/01/2021 15:30:01 2023 XR, humerus, 2 or more view completed [facility] [address], [place], [address] 2023 15:45:55 2023 img:xr shoulders bilat min 2V completed [address] [place], [address] 2023 15:45:55 2023 img:xr humerus left 2 views minimum completed [address] [place], [address] 2023 15:45:56 2023 xr humerus right 2 views minimum completed [address] [facility] [address] [place], [address], 2023 15:45:54 2023 xr humerus left 2 views minimum completed [address] [facility] [address] [place], [address], 2023 15:45:54 2023 xr shoulders bilat min 2V completed [address] [facility] [address] [place], [address], 2023 15:45:55 Procedure Notes None recorded. Medical Equipment None Reported. Allergies Allergen ID Allergen Name Allergen Category Reaction Reaction Severity Criticality Documentation Date Start Date Code Code System Note Provider Name and Address Organization Details Recorded Time 648956 Product containin g penicilli n (product) medicatio n Not available Not available Not available 12/08/2020 56474 8001 SNOMED [facility] 09:[facility]40 Medications Name Sig [...] Not Available Vitals Date Recorded Body height Body mass index (BMI) Body weight Provider Name and Address Organization Details Last Updated DateTime 12/08/2020 180.34 cm 22.7 kg/m2 57262.56 g Mirtha Garcia [facility] 12/08/2020 09:03:40 Date Recorded Body height Body mass index (BMI) Body weight Provider Name and Address Organization Details Last Updated DateTime 01/19/2021 180.34 cm 22.7 kg/m2 89148.56 g Dorota Fuchs [facility] 01/19/2021 15:11:17 Date Recorded Body height Provider Name an d Address Organization Details Last Updated DateTime 01/22/2021 180.34 cm Ernie Hernandez [facility] 01/22/2021 11:29:41 Date Recorded Body height Body mass index (BMI) Body weight Provider Name and Address Organization Details Last Updated DateTime 2023 180.34 cm 22.7 kg/m2 12186.56 g Mac Soto [facility] 2023 11:06:02 Social History Question Answer Notes LastModified by Organizat ion Details LastModified Time Tobacco Smoking Status Never Smoker Mac holguin [facility] 2023 11:06:13 What Is [...] available 07/2020 09:06:27 Medical History Condition Response Blood Clots / Phlebitis N Heart Problems N HIV or AIDS N High Blood Pressure N Depression or Anxiety N Irregular Heartbeat N MRSA N Any Other Significant Medical Issues N Emphysema / Chronic Bronchitis N Reaction to General/Local Anesthesia N Weight Gain / Loss N Hepatitis / Jaundice N Kidney / Bladder Infections N Diabetes N Bleeding Disorder N Hearing Loss N Angina, Heart Failure or Attack N Seizures / Epilepsy N Night Sweats N Osteoarthritis / Rheumatoid arthritis / Other N Cancer N Stroke N Chemical Dependency / Alcoholism N Ulcer / Stomach Bleeding / Indigestion N Visual Loss or Glaucoma N Thyroid Disorder N Psoriasis / Skin Rash N Heart Disease N Pulmonary Embolism N Asthma / Shortness of Breath / Sleep Bible Reader ea (please specify) N Immunizations Vaccine Type Date Status Note Provider Nam e and Address Organization Details Recorded Time SARS-COV-2 (COVID-19) vaccine, UNSPECIFIED 11/19/2020 completed [facility] 12/08/2020 09:06:05 Past Encounters Encounter ID Performer Location Encounter Start Date Encounter Closed Date Diagnosis/Indication Diagnosis SNOMED-CT Code Diagnosis ICD10 Code Diagnosis Note [id number] SUSANA CAMPOS [facility] Office [address] [place] [phone] 12/08/2020 08:10:35 12/08/2020 13:13:25 Localized, primary osteoarthritis of the shoulder region 045781360 M19.012 [id number] TONI MAN MD [address] [address] 01/19/2021 10:36:33 01/22/2021 10:49:23 Osteoarthritis 180873090 M19.011 [id number] [facility] [address] [place] [id number] 01/22/2021 10:48:33 01/22/2021 12:11:01 Localized, primary osteoarthritis of the shoulder region 569604014 M19.340 [id number] MD [facility] [address] [facility] [place] [id number] 2023 09:45:08 2023 11:47:16 Localized, primary osteoarthritis of the shoulder region 044639089 M19.012 Health Concerns Section Related Observation LastModified by Organization Detai ls LastModified Time None Recorded Concern Status LastModified by Organization Details LastModified Time None Recorded Advance Directives Directive None Recorded Payers Encounter Date Sequence Insurance Name Policy Number Policy Dominguez Covered Member ID Dominguez Member ID Guarantor Name 12/08/2020 1 [facility] [place] Carlos Ortiz [id number] Carlos Ortiz 01/19/2021 1 [facility] Carlos Ortiz [id number] Carlos Ortiz 01/22/2021 1 [facility] Carlos Ortiz [id number] Carlos Ortiz 2023 1 [facility] ([facility] [place] [id number] Carlos Ortiz [id number] Carlos Ortiz Notes Date Note Type [...] not felt an improvement. SUSANA CAMPOS [address] [facility], [place], [address], [facility] 05/31/2021 11:52:26 01/19/2021 text/html [...] any arthroscopic options. TONI MAN MD [address] [facility], [place], [address], [facility] 01/22/2021 10:43:13 01/22/2021 text/html [...] SANE is {{ 11#}}. PADMINI BUCK MD [address] [place] [address], [phone], [facility] 01/25/2021 14:38:52 2023 text/html Cralos Ortiz, a 52-year-old male, presents to the [...] a large bone spur. PADMINI BUCK MD [address] [place] [address], [address], [facility] 08/29/2023 11:37:34
== END 2024-07-02 12:39 | disposition home or self-care (01) ==
LOC: HO.LAB 12:38
PROVIDERS: PCP Physician Assistant; Visit Provider Physician Assistant
DX: Z13.1 Encounter for screening for diabetes mellitus (principal); Z12.5 Encounter for screening for malignant neoplasm of prostate; E78.9 Disorder of lipoprotein metabolism, unspecified
CPT/HCPCS: 36415; 80053; 80061; 84153; 85027